=== PATIENT | male | born 1990 | race Caucasian/White ===

== ENCOUNTER 2018-01-31 09:28 | Emergency (ER) | payer SELFPAY ==
[~2018-01-31] VITALS: Ht 182.9 cm; Wt 74.8 kg
[2018-01-31] MEDS ORDERED: IBUPROFEN 600 MG TAB PO STA (10:00)
[2018-01-31] MEDS ORDERED: CORTISPORIN-TC10 ML OT (10:03)
[2018-01-31] MEDS ORDERED: AMOXICILLIN250 MG PO (10:03)
[2018-01-31] MEDS ORDERED: TYLENOL WITH C1 EACH PO (10:03)
[2018-01-31 10:13] VITALS: BP 135/80
== END 2018-01-31 10:23 | disposition home or self-care (01) ==
LOC: ER 09:28
DX: H92.01 Otalgia, right ear (principal); F17.210 Nicotine dependence, cigarettes, uncomplicated; H65.01 Acute serous otitis media, right ear
CPT/HCPCS: 99283